=== PATIENT | male | born 1960 | race Caucasian/White ===

== ENCOUNTER 2017-06-21 06:53 | Inpatient (IN) ==
[2017-06-17 11:28] LABS: Appearance,Urine CLEAR; Bilirubin,Urine NEG (NEG); Color,Urine STRAW; Glucose,Urine (UA) NEGATIVE (NEG); Leukocyte Esterase,Urine NEG /uL (NEG); Nitrate,Urine NEG (NEG); Protein,Urine NEG (NEG); Specific Gravity,Urine 1.003 (1.000-1.035); Urine Blood NEG mg/dL (<0.03); Urobilinogen,Urine NEG (NEG)
[2017-06-17 12:37] LABS: Basophils # (Auto) 0.1 K/mcL (0.0-0.3); Basophils % (Auto) 0.7 % (0.0-2.0); Eosinophils # (Auto) 0.2 K/mcL (0.0-0.7); Eosinophils % (Auto) 1.6 % (0.0-7.0); Granulocytes % (Auto) 65.8 % (38.0-78.0); Lymphocytes # (Auto) 2.6 K/mcL (1.5-4.8); Lymphocytes % (Auto) 22.1 % (15.5-49.0); Mean Cell Volume 94.2 fL (80.0-100.0); Monocytes # (Auto) 1.2 K/mcL (0.1-0.9); Monocytes % (Auto) 9.8 % (1.0-12.0); Platelet Count 400 K/mcL (140-440); Red Cell Distribution Width 13.4 % (11.5-14.5)
[2017-06-17 13:10] LABS: ALT/SGPT 13 U/l (0-40); Albumin 4.5 gm/dL (3.2-5.2); Albumin/Globulin Ratio 1.7 (1.0-2.3); Alkaline Phosphatase 55 U/L (39-117); Blood Urea Nitrogen 11 mg/dl (6-20)
[2017-06-21] MEDS ORDERED: VANCOMYCIN 1,000 MG in 0.9 % SODIUM CHLORIDE 250 ML IV SCH (09:00)
[2017-06-21] MEDS ORDERED: ceFAZolin 1 GM VIAL IV SCH (13:00)
[2017-06-21] MEDS ORDERED: LIDOCAINE HCL/PF 100 MG/5 ML SYRINGE IV ONE (13:35)
[2017-06-21] MEDS ORDERED: ONDANSETRON 4 MG/2 ML VIAL IV ONE (13:35)
[2017-06-21] MEDS ORDERED: PROPOFOL 200 MG/20 ML VIAL IV ONE (13:35)
[2017-06-21] MEDS ORDERED: DEXAMETHASONE 10 MG/ML VIAL IV ONE (13:35)
[2017-06-21] MEDS ORDERED: KETAMINE 100 MG/ML ML IV ONE (13:35)
[2017-06-21] MEDS ORDERED: SUCCINYLCHOLINE 20 MG/ML ML IV ONE (13:35)
[2017-06-21] MEDS ORDERED: MIDAZOLAM 2 MG/2 ML VIAL IV ONE (13:35)
[2017-06-21] MEDS ORDERED: HYDROmorphone 2 MG/ML SYRINGE IV ONE (13:35)
[2017-06-21] MEDS ORDERED: fentaNYL 250 MCG/5 ML VIAL IV ONE (13:35)
[2017-06-21] MEDS ORDERED: THROMBIN (BOVINE) 5,000 UNIT VIAL TOPICAL ONE (14:00)
[2017-06-21] MEDS ORDERED: GELATIN SPONGE,ABSORBABLE 1 GM POWDER TOPICAL ONE (15:17)
[2017-06-21] MEDS ORDERED: GELATIN SPONGE,ABSORBABLE 1 EACH SPONGE TOPICAL ONE (15:17)
[2017-06-21] MEDS ORDERED: ONDANSETRON 4 MG/2 ML VIAL IV PRN (15:56)
[2017-06-21] MEDS ORDERED: ePHEDrine 50 MG/ML AMPUL IV PRN (15:56)
[2017-06-21] MEDS ORDERED: NALOXONE HCL 0.4 MG/ML VIAL IV PRN (15:56)
[2017-06-21] MEDS ORDERED: MEPERIDINE 25 MG/ML SYRINGE IV PRN (15:56)
[2017-06-21] MEDS ORDERED: diphenhydrAMINE 50 MG/ML VIAL IV PRN (15:56)
[2017-06-21] MEDS ORDERED: METHOCARBAMOL 1,000 MG/10 ML VIAL IV PRN (15:56)
[2017-06-21] MEDS ORDERED: FLUMAZENIL 0.1 MG/ML ML IV PRN (15:56)
[2017-06-21] MEDS ORDERED: BENZOCAINE/MENTHOL 1 LOZENGE PO PRN (15:56)
[2017-06-21] MEDS ORDERED: IPRATROPIUM/ALBUTEROL 3 ML AMPUL.NEB NEB PRN (15:56)
[2017-06-21] MEDS ORDERED: PROMETHAZINE 25 MG/ML VIAL IV PRN (15:56)
[2017-06-21] MEDS ORDERED: LACTATED RINGERS 250 ML IV PRN (15:56)
[2017-06-21] MEDS ORDERED: LACTATED RINGERS 1,000 ML IV SCH (16:00)
--- NOTE | 2017-06-21 16:04 | Brief Operative Note ---
Date of procedure: 06/21/17 Pre-op diagnosis: cervical disc herniation c5-7 Post-op diagnosis: same Procedure: ACDF C5-7 Grafts/Implants: Yes (synthes) Anesthesia: GETA Complications: none Surgeon: Carlos Dolan Dairy Worker: Aishwarya Coleman Estimated blood loss (cc): 20 Specimens Removed/Pathology: none sent Condition: stable Disposition: PACU
[2017-06-21] MEDS: fentaNYL 100 MCG/2 ML VIAL IV PRN ×4 (16:30→17:10)
[2017-06-21] MEDS: ACETAMINOPHEN 1,000 MG/100 ML BOTTLE IV SCH ×2 (17:00→22:23)
[2017-06-21] MEDS: HYDROmorphone 2 MG/ML SYRINGE IV PRN ×4 (17:05→17:22)
[2017-06-21] MEDS: HYDROcodone/APAP 10/325MG TABLET PO PRN ×2 (19:19→20:25)
[2017-06-21] MEDS: 0.9 % SODIUM CHLORIDE 10 ML SYRINGE IV SCH (22:24)
[2017-06-22] MEDS: HYDROcodone/APAP 10/325MG TABLET PO PRN ×3 (02:14→12:24)
[2017-06-22] MEDS: ACETAMINOPHEN 1,000 MG/100 ML BOTTLE IV SCH ×2 (02:19→10:43)
[2017-06-22] MEDS: 0.9 % SODIUM CHLORIDE 10 ML SYRINGE IV SCH (05:57)
[2017-06-22 07:14] LABS: Blood Urea Nitrogen 6 mg/dl (6-20)
--- NOTE | 2017-06-22 07:31 | Discharge Summary ---
Providers - Providers Patient information: Note initiated : 06/22/17 at 7:28 am Service Date, if different from initiated Date: [] Patient: Ranjit Hawkins 56 y/o M admitted on 06/21/17 for C5-7 Anterior Cervical Discectomy with Fusion. Chief Complaint: [S/p C5-7 ACDF] Discharge date: 06/22/17 Hospitalization Hospital course: Postoperatively, the patient was returned to the [facility] and provided with routine pain management and maintained on prophylactic antibiotics. At the time of discharge, his pain is well-controlled and he is tolerating all medication. He is discharged to f/u with id in approximately 2 weeks. Discharge instructions were verbalized to the patient. He will call with any questions or concerns whatsoever. Discharge diagnosis: S/P C5-7 ACDF Reason for admission: Operative treatment of cervical stenosis Procedures: C5-7 ACDF Complications: NONE Exam - Exam Incision healing: Yes Incision draining: No Incision red: No Incision swollen: No Incision inflamed: No Clean and dry: Yes Weight bearing status: as tolerated Range of motion: Limited due to cervical collar Ortho Discharge - Spine - Patient Instructions Discharge Diet: Regular Diet Activity: weight bearing as tolerated Spine Protocol: Limit bending and stooping. No heavy lifting. Wear brace/collar at all times except when showering and sleeping. Dressing Care: May shower in 2 days Additional Dressing Instructions: May Shower 48 hours post-operative and replace with dry dressing after shower. Patient Education: Anterior Cervical Discectomy (DC) - Problem Maintenance (1) Cervical spinal stenosis Status: Chronic - Follow Up Plan Follow Up Appointments: Aishwarya Coleman PA-C [Physician Foam Molder] - Carlos Dolan MD [Physician] - 07/06/17 2:30 pm Disposition: Home, Self-Care Prognosis: Good Rehab Potential: Good I certify that the patient requires SNF services: No Overall status at discharge: patient is progressing back to baseline - Orders For Discharge Prescriptions: HYDROcodone/APAP 10/325MG [[place] 10/325Mg] 1 - 2 tab PO Q6H PRN #50 tab PRN Reason: Pain Pending Studies Resuscitation Status Full Code Diet Regular Diet Start Mon Nov 6 Dinner Hydrocodone Bitart/Acetaminophen ([place] 10/325mg) 1 - 2 tab PO Q4HP PRN PRN Reason: Pain Last Admin: 06/22/17 02:14 Dose: 2 tab Admin: 06/21/17 20:25 Dose: 1 tab Admin: 06/21/17 19:19 Dose: 1 tab Acetaminophen (Ofirmev) 1,000 mg in 100 mls @ 200 mls/hr IV Q6H SINAN Stop: 06/22/17 10:29 Last Admin: 06/22/17 02:19 Dose: Admin: 06/21/17 22:23 Dose: 200 mls/hr Infusion: 06/21/17 17:30 Dose: 0 mls/hr Admin: 06/21/17 17:00 Dose: 200 mls/hr Sodium Chloride (Saline Flush) 10 ml IV Q8 SINAN Last Admin: 06/22/17 05:57 Dose: 10 ml Admin: 06/21/17 22:24 Dose: Not Given Shift Summary 06/22/17 04:48 Shift Summary by Abdirashid Byrd Patient has rested fairly well tonight. Dsng ant Rt neck - C,D,I w/ VCÍTOR draining sm-mod amt sanguinous fluid - 35ml out this shift. Voiding QS into urinal - PVR scan was 14ml. C-collar in place. Neck pain fairly well controlled w/ PO [place] 10 (2) - last dose @ 0220. Held 0400 OFIRMEV 2nd to getting close to 4Gm Tylenol limit. Saline lock to LT F/A - flushed. He has mild numbness to his RT arm - gin pole operator are equal & strong. Patient has been up & AMB to & from [facility] - mostly stable w/ SBA. VS - WLN on R.A.. S.O. in . He has been calm, pleasant, & cooperative. Initialized on 06/22/17 04:48 - END OF NOTE
--- NOTE | 2017-06-22 07:58 | Orthopedic Progress Note ---
Subjective Patient information: Note initiated : 06/22/17 at 7:55 am Service Date, if different from initiated Date: [] Patient: Ranjit Hawkins 56 y/o M admitted on 06/21/17 for C5-7 Anterior Cervical Discectomy with Fusion. Chief Complaint: [S/p C5-7 ACDF] Patient is doing well and has no compaints. Denies any upper extremity weakness or paresthesias. Objective Vital signs: Vital Signs Temp Pulse Resp BP BP Pulse Ox 06/22/17 07:39 98.2 F 64 20 127/71 97 06/22/17 06:46 20 06/22/17 04:00 97.7 F 68 16 121/74 96 06/21/17 23:35 97.6 F 66 12 132/73 96 06/21/17 22:40 97 06/21/17 20:03 97.7 F 64 12 138/84 96 06/21/17 19:03 80 145/84 95 06/21/17 18:33 82 138/89 96 06/21/17 18:13 74 136/82 95 06/21/17 17:59 84 139/80 95 06/21/17 17:49 79 16 150/78 95 06/21/17 17:30 98.5 F 88 18 134/67 97 06/21/17 17:00 98.5 F 92 H 18 138/67 94 06/21/17 16:45 98.5 F 82 18 143/78 94 06/21/17 16:40 98.5 F 87 18 137/83 98 06/21/17 16:35 98.5 F 88 18 136/81 97 06/21/17 16:30 98.5 F 88 18 128/78 96 Intake and Output 06/21/17 06/22/17 06/22/17 21:59 05:59 13:59 Intake Total 2480 / 2480 375 / 375 Output Total 520 / 520 1710 / 1710 626 / 626 Balance 1959 / 1959 -1335 / -1335 -626 / -626 Intake: IV 100 / 100 Oral 1080 / 1080 375 / 375 Other 1300 / 1300 Output: Drainage 35 Left Anterior Neck 35 Void Amount 500 / 500 1675 / 1675 625 / 625 Estimated Blood Loss Other: Meal Dinner Percent of Meal Consumed 25% Feeding Ability Independent # Voids 1 Weight 151 lb Intake & Output: Intake & Output 06/21/17 06/22/17 06/22/17 21:59 05:59 13:59 Intake Total 2480 / 2480 375 / 375 Output Total 520 / 520 1710 / 1710 626 / 626 Balance 1960 / 1960 -1335 / -1335 -626 / -626 Weight 151 lb Intake: IV 100 / 100 Oral 1080 / 1080 375 / 375 Other 1300 / 1300 Output: Drainage Left Anterior Neck Void Amount 500 / 500 1675 / 1675 625 / 625 Estimated Blood Loss Other: Meal Dinner Percent of Meal Consumed 25% Feeding Ability Independent # Voids 1 Incision: Yes clean and dry Incision clean and dry: Yes Dressing: Yes clean, Yes dry, Yes intact Weight bearing status: as tolerated Neurological exam IM: Yes alert, Yes motor sensory intact, Yes neurovascular intact - Labs CBC & BMP: 06/22/17 05:10 06/22/17 05:10 Labs: Orthopedic Labs 06/17/17 09:50 PT 12.0 INR 0.9 06/22/17 06/17/17 05:10 09:50 Hgb 13.8 14.7 Hct 41.2 43.4 Assessment and Plan (1) Cervical spinal stenosis D/c drain today and discharge to home today. Status: Chronic
--- NOTE | 2017-06-22 08:23 | Operative Note ---
DATE OF OPERATION: 06/21/2017 PREOPERATIVE DIAGNOSIS: Cervical disc herniation C5-6, C6-7, posterior foraminal narrowing. POSTOPERATIVE DIAGNOSIS: Cervical disc herniation C5-6, C6-7, posterior foraminal narrowing. OPERATION PROPOSED: 1. Anterior cervical diskectomy with decompression of neural elements C5-6 C6-7, anterior interbody fusion C5-6, C6-7 with application of structural allograft at both levels. 2. Aspiration of iliac crest for osteoprogenitor cells and anterior instrumentation C5-7. OPERATION PERFORMED: 1. Anterior cervical diskectomy with decompression of neural elements C5-6 C6-7, anterior interbody fusion C5-6, C6-7 with application of structural allograft at both levels. 2. Aspiration of iliac crest for osteoprogenitor cells and anterior instrumentation C5-7. OPERATING SURGEON: Carlos Dolan MD DATA SERVICES DEVELOPER: Aishwarya Coleman PA-C INDICATIONS: This is a gentleman who has had intractable radicular pain and weakness. He has significant foraminal narrowing with disc material herniated C5-C6 and C6-7. OPERATION IN DETAIL: Informed consent was obtained. He was taken to the operating room and provided with appropriate anesthetic and prophylactic antibiotics. He was carefully positioned. His anterior neck and his iliac crest were prepped sterilely. A standard anterior approach to the cervical spine was performed. I dissected through the platysma. I bluntly dissected through the strap muscles arriving on the anterior spine. I elevated the longus colli musculature and placed a self-retaining retractor. I brought in the operating microscope. A Howard pin was placed. I incised the annulus at C6-7 and then extensively curetted disc material. I used a high speed bur to decorticate the endplates and debride down to subchondral bleeding bone. This left a shelf of osteophyte posteriorly. I curetted beneath this with a 4-0Karlin curet and removed the osteophyte with 2 mm Kerrison. Foraminotomies were performed. An identical procedure was done at C5-6, removing the disc and performing foraminotomies and removing osteophyte herniated disc material. I then aspirated the iliac crest for osteoprogenitor cells. This was done by advancing a Jamshidi type needle into the iliac crest and aspirating, then soaked the VG2 graft into the bone marrow aspirate to enhance fusion. We then performed the application of structural allograft and interbody fusion. This was done by selecting a VG2 graft which was sized to conform to the disc space. I impacted this into the site prepared for it. I probed beneath the graft to ensure that the graft was not impacted too deeply. This was done at both C5-6 and C6-7. I then performed the anterior instrumentation. This was done by selecting an appropriate sized Vectra plate from [employer]. It was held into position. I punched each of the 6 holes. These were filled with a locking screw. Radiograph was obtained to confirm the position of the hardware. I then placed additional bone graft in the graft window. I irrigated thoroughly and closed over a deep drain with a 2-0 running in the platysma, 3-0 inverted deep dermal, and running subcuticular. The procedure was tolerated well. No complications. Estimated blood loss was 10 mL. GDD:favian Job ID: [id number] Doc ID: [id number] Carlos Dolan MD
[2017-06-22] MEDS ORDERED: DOCUSATE SODIUM 100 MG CAPSULE PO SCH (09:00)
== END 2017-06-22 12:30 | disposition home or self-care (01) | DRG 473 ==
LOC: MEDSUR 06:53
PROVIDERS: ADMIT Orthopaedic Surgery Orthopaedic Surgery of the Spine; ATTEND Orthopaedic Surgery Orthopaedic Surgery of the Spine